=== PATIENT | female | born 1990 | race Two or more races ===

== ENCOUNTER → 2019-08-07 | Day surgery (SDC) | payer BC ==
[2019-08-03 09:05] LABS: Basophils # (auto) 0 uL; Basophils % (auto) 0.7 % (0.0-2.0); Eosinophils # (auto) 0 uL; Hematocrit 41.6 % (36.0-46.0); Hemoglobin 14.6 g/dL (12.2-16.2); Lymphocytes # (auto) 1.1 uL; Lymphocytes % (auto) 20.5 % (10.0-50.0); Mean Corpuscular Hemoglobin 32.4 pg (28.0-32.0); Mean Corpuscular Hgb Conc. 35.1 g/dL (32.0-36.0); Mean Corpuscular Volume 92.3 fL (80.0-100.0); Monocytes # (auto) 0.4 uL; Monocytes % (auto) 7.6 % (0.0-12.0); Neutrophils # (auto) 3.6 uL; Neutrophils % (auto) 70.2 % (37.0-80.0); Platelet Count (auto) 314 10^3/uL (140-450); Red Cell Distribution Width 12.7 % (11.8-14.3); White Blood Cell 5.1 10^3/uL (4.4-10.8)
[2019-08-03 09:21] LABS: INR 1.07 (0.9-1.15); Partial Thromboplastin Time 27.9 sec (23.64-32.05)
[~2019-08-07] VITALS: Ht 162.6 cm; Wt 77.1 kg
[~2019-08-07] MED LIST: MIDAZOLAM HCL 5 MG/ML-1ML VIAL ONE; SODIUM CHLORIDE LOCK 10 ML ONE; diphenhdrAMINE HCL 50 MG/1 ML VL ONE; fentaNYL CITRATE 100 MCG/2 ML VL ONE
[2019-08-07] MEDS: MIDAZOLAM HCL 5 MG/ML-1ML VIAL ONE ×3 (09:25→09:33)
[2019-08-07] MEDS: fentaNYL CITRATE 100 MCG/2 ML VL ONE ×2 (09:25→09:28)
[2019-08-07 10:14] VITALS: BP 116/63
== END | disposition home or self-care (01) ==
LOC: GI 07:57
PROVIDERS: ATTEND Internal Medicine Gastroenterology
DX: K92.1 Melena (principal); K64.8 Other hemorrhoids
CPT/HCPCS: 36415; 45378; 84702; 85025; 85610; 85730; J1200; J2250; J3010; J7030; 99152